=== PATIENT | female | born 1975 | race Caucasian/White ===

== ENCOUNTER 2020-12-29 14:20 | Outpatient (CLI) | payer BC ==
--- NOTE | 2020-12-29 16:23 | RAD ---
SACRUM AND COCCYX FIVE VIEWS: 12/29/20 HISTORY: Patient fell. I do not see any signs of fracture of the sacrum or coccyx. IMPRESSION: No acute findings. POS: STEVO
--- NOTE | 2020-12-29 16:23 | RAD ---
SI JOINTS FIVE VIEWS: 12/29/20 HISTORY: Sacral pain. SI joints are symmetric in appearance without evidence of erosive or bony changes or ankylosis. IMPRESSION: Unremarkable SI joints. POS: STEVO
--- NOTE | 2020-12-29 16:54 | RAD ---
LEFT ELBOW FOUR VIEWS: 12/29/20 HISTORY: Fall with elbow injury. There is a type I olecranon fracture is essentially nondisplaced. Small joint effusion is noted. IMPRESSION: Nondisplaced olecranon fracture. POS: STEVO
--- NOTE | 2020-12-29 16:55 | RAD ---
LEFT RIB SERIES: 12/29/20 HISTORY: Fall five days ago. Chest pain. FINDINGS/IMPRESSION: No left sided rib fracture is seen. POS: OFF
== END 2020-12-29 14:21 | disposition home or self-care (01) ==
LOC: SCSRAD 14:20
PROVIDERS: ATTEND Family Medicine
DX: R10.9 Unspecified abdominal pain (principal); M53.3 Sacrococcygeal disorders, not elsewhere classified; M25.522 Pain in left elbow; S52.025A Nondisplaced fracture of olecranon process without intraarticular extension of left ulna, initial encounter for closed fracture
CPT/HCPCS: 72202; 72220

== ENCOUNTER 2025-07-25 01:10 | Emergency (ER) | payer BC ==
[2025-07-25 01:53] LABS: #Basophils 0.04 10x3/uL (0.0-0.2); #Eosinophils 0.20 10x3/uL (0.0-0.7); #Monocytes 0.44 10x3/uL (0.11-0.59); #Neutrophils 4.03 10x3/uL (1.40-6.50); %Basophils 0.6 % (0.0-1.0); %Eosinophils 3.0 % (0.0-10.0); %Lymphocytes 29.9 % (21.0-51.0); %Monocytes 6.5 % (0.0-10.0); %Neutrophils 59.6 % (42.0-75.0); Hematocrit 34.1 % (36.0-47.0); Hemoglobin 11.1 g/dL (12.0-16.0); Mean Corpuscular Hemoglobin 28.0 pg (27.0-31.0); Mean Corpuscular Volume 85.9 fL (78.0-98.0); Platelet Count 271 10x3/uL (130-400); Red Blood Cell (RBC) Count 3.97 mill/uL (4.20-5.40); White Blood Cell (WBC) Count 6.76 10x3/uL (4.8-10.8)
[2025-07-25 02:06] LABS: BHCG - Serum Negative (NEGATIVE); Pregs Control Background? CLEAR/WHITE (CLR/WHITE); Pregs Control Bar Appear? YES (CONTROL BAR)
[2025-07-25 02:10] LABS: INR-International Normal Ratio 1.0; PTT 31.3 sec (22.9-36.1); Prothrombin Time 13.7 sec (12.0-14.7)
[2025-07-25 02:26] LABS: HCG, Total Quant Less than 2.42 mIU/mL (See Ranges)
[2025-07-25 02:30] LABS: Thyroid Stimulating Hormone 4.9955 uIU/mL (0.35-4.94)
[2025-07-25 02:40] LABS: ALT (SGPT) 9 U/L (Less than 34); AST (SGOT) 14 U/L (11-34); Albumin 4.1 g/dL (3.1-4.5); Alkaline Phosphatase 79 U/L (40-110); Anion Gap 16 mmol/L (10-20); BUN (Urea Nitrogen) 10 mg/dL (7.0-18.7); Bilirubin, Total 0.2 mg/dL (0.3-1.2); Calc. Creatinine Clearance 0 mL/min (70-130); Calcium 9.3 mg/dL (7.8-10.44); Carbon Dioxide 22 mmol/L (22-29); Chloride 105 mmol/L (98-107); Globulin 3.1 g/dL (2.4-3.5); Glucose 116 mg/dL (70-105); Potassium 3.6 mmol/L (3.5-5.1); Sodium 139 mmol/L (136-145)
== END 2025-07-25 04:33 | disposition home or self-care (01) ==
LOC: ERS 01:10
DX: D25.9 Leiomyoma of uterus, unspecified (principal); D64.9 Anemia, unspecified
CPT/HCPCS: 76856; 80053; 84443; 84702; 84703; 85025; 85610; 85730